=== PATIENT | male | born 1945 | race Two or more races ===

== ENCOUNTER 2020-10-09 09:32 | Outpatient (CLI) | payer OTHER | END 2020-10-09 09:38 | disposition home or self-care (01) | LOC: SONOGRAMA 09:32 | PROVIDERS: ATTEND Urology | DX: N40.0 Benign prostatic hyperplasia without lower urinary tract symptoms (principal); R97.20 Elevated prostate specific antigen [PSA] ==

== ENCOUNTER → 2020-11-26 12:39 | Outpatient (CLI) | payer OTHER | END | disposition home or self-care (01) | LOC: LAB 12:39 | PROVIDERS: ATTEND Radiology Diagnostic Radiology | DX: N20.0 Calculus of kidney (principal) ==

== ENCOUNTER 2020-11-29 08:42 | Outpatient (CLI) | payer OTHER | END 2020-11-29 08:48 | disposition home or self-care (01) | LOC: TOM 08:42 | PROVIDERS: ATTEND Internal Medicine Gastroenterology | DX: Q61.01 Congenital single renal cyst (principal); R10.84 Generalized abdominal pain ==

== ENCOUNTER 2020-12-27 16:14 | Outpatient (CLI) | payer OTHER | END 2020-12-27 16:21 | disposition home or self-care (01) | LOC: RAD 16:14 | PROVIDERS: ATTEND Internal Medicine Hematology & Oncology | DX: C90.00 Multiple myeloma not having achieved remission (principal) ==

== ENCOUNTER 2021-05-24 08:01 | Outpatient (CLI) | payer OTHER | END 2021-05-24 08:02 | disposition home or self-care (01) | LOC: PPH VACUNA 08:01 | PROVIDERS: ATTEND Emergency Medicine Pediatric Emergency Medicine | DX: Z23 Encounter for immunization (principal) ==

== ENCOUNTER 2021-10-28 12:22 | Inpatient (IN) | payer OTHER ==
[~2021-10-28] VITALS: Ht 172.7 cm; Wt 70.3 kg
[2021-10-28] MEDS ORDERED: LATANOPROST2.5 ML (15:59)
[2021-10-31] MEDS ORDERED: HYDREA500 M1 PO (17:08)
== END 2021-10-31 17:48 | disposition home or self-care (01) | DRG 835 ==
LOC: SURG 12:22
PROVIDERS: ADMIT Internal Medicine Hematology & Oncology; ATTEND Internal Medicine Hematology & Oncology
PROC: 30233R1 Transfusion of Nonautologous Platelets into Peripheral Vein, Percutaneous Approach (ICD-10-PCS; principal; 2021-10-28)
DX: C92.50 Acute myelomonocytic leukemia, not having achieved remission (principal); E44.0 Moderate protein-calorie malnutrition; D69.49 Other primary thrombocytopenia; E86.0 Dehydration

== ENCOUNTER 2021-11-11 04:04 | Inpatient (IN) | payer OTHER ==
[~2021-11-11] VITALS: Ht 172.7 cm; Wt 72.6 kg
[~2021-11-11 04:04] MED LIST: HYDREA500 M1 PO; LATANOPROST2.5 ML
[2021-11-11] MEDS ORDERED: PROMACTA (04:15)
[2021-11-11] MEDS ORDERED: MILLIPRED5 MG (04:16)
== END 2021-11-11 21:00 | disposition expired | DRG 834 ==
LOC: ER 04:04 → ICU-2 09:22
PROVIDERS: ADMIT Internal Medicine Hematology & Oncology; ATTEND Internal Medicine Hematology & Oncology
PROC: 30233N1 Transfusion of Nonautologous Red Blood Cells into Peripheral Vein, Percutaneous Approach (ICD-10-PCS; principal; 2021-11-11)
PROC: 0BH17EZ Insertion of Endotracheal Airway into Trachea, Via Natural or Artificial Opening (ICD-10-PCS; 2021-11-11)
PROC: 5A1935Z Respiratory Ventilation, Less than 24 Consecutive Hours (ICD-10-PCS; 2021-11-11)
DX: C93.00 Acute monoblastic/monocytic leukemia, not having achieved remission (principal); A41.89 Other specified sepsis; R65.21 Severe sepsis with septic shock; J96.00 Acute respiratory failure, unspecified whether with hypoxia or hypercapnia; N17.8 Other acute kidney failure; K92.2 Gastrointestinal hemorrhage, unspecified; E87.2 Acidosis; D46.21 Refractory anemia with excess of blasts 1; D69.6 Thrombocytopenia, unspecified; I95.89 Other hypotension; R34 Anuria and oliguria; Z20.822 Contact with and (suspected) exposure to COVID-19; E86.0 Dehydration; E87.8 Other disorders of electrolyte and fluid balance, not elsewhere classified